=== PATIENT | male | born 1995 | race African-American/Black ===

== ENCOUNTER 2018-05-26 09:37 | Inpatient (IN) ==
[2018-05-26] MEDS ORDERED: Ketorolac Inj 30 MG/ML (IVP) Vial IV.PUSH ONE (10:26)
--- NOTE | 2018-05-26 10:33 | ED ---
HPI General Chief complaint: Dental/Oral Stated complaint: Throat pain/Swelling Time Seen by Provider: 05/26/18 10:05 Source: patient Mode of arrival: ambulatory Limitations: no limitations History of Present Illness HPI narrative: Patient is a 22-year-old -Pak[place] male who presents emergency room with complaints of sore throat, difficulty talking, and difficulty swallowing. Patient was seen here on 05/24/18 for the same symptoms. He was diagnosed with uveitis. He was given 8 mg of Decadron IM while in the ED. He was discharged home on Pen-Vee K, prednisone 40 mg daily, and Motrin. He presents today with no real resolution and worsening of symptoms. Planes of subjective fever. While talking with patient he has had to get up and expectorate a couple of times. No complete shortness of breath or dyspnea. Related Data Previous Rx's Medication Instructions Recorded ibuprofen 800 mg PO TID PRN #21 tab 05/24/18 penicillin V potassium 500 mg PO Q6H 10 Days #40 tab 05/24/18 prednisone 40 mg PO DAILY 5 Days #10 tab 05/24/18 Allergies Allergy/AdvReac Type Severity Reaction Status Date / Time No Known Allergies Allergy Verified 05/26/18 10:10 Review of Systems ROS: all other systems reviewed are negative PMFSH Surgical History Surgical History No history of previous surgery (Acute) Social History Social History Substance History: No History of Abuse Second Hand Smoke Exposure: Yes Smoking Status: Current every day smoker Tobacco Type: Cigarettes How Often Do You Have a Drink Containing Alcohol: 2 to 4 times a month [facility] within the Last 8 Weeks: No Recent Out of Country Travel within the Last 8 Weeks: No Exam Narrative Exam Narrative: GENERAL: Well-nourished, well-developed patient. SKIN: Focused skin assessment warm/dry. HEAD: Normocephalic. EYES: No scleral icterus. No injection or drainage. NECK: Supple, trachea midline. No JVD or lymphadenopathy. CARDIOVASCULAR: Regular rate and rhythm without murmurs, gallops, or rubs. RESPIRATORY: Breath sounds equal bilaterally. No accessory muscle use. ENT: Mucosa pink and moist. Significant pharyngeal erythema, especially of left tonsil with exudates. Mild uvular edema. Left tonsil more swollen but no signficant uvula deviation. Airway patent. Course Initial Documented Vital Signs Temperature 98.7 F 05/26/18 09:46 Pulse Rate 71 05/26/18 09:46 Respiratory Rate 15 05/26/18 09:46 Blood Pressure 136/59 L 05/26/18 09:46 Pulse Oximetry 99 05/26/18 09:46 Last Documented Vital Signs Temperature 98.7 F 05/26/18 09:46 Pulse Rate 74 05/26/18 14:41 Respiratory Rate 18 05/26/18 14:41 Blood Pressure 129/78 05/26/18 14:41 Pulse Oximetry 99 05/26/18 09:46 Medical Decision Making MDM Narrative Medical decision making narrative: 22-year-old male presents with 3-day plus history of sore throat, painful swallowing. He was seen here on 05/24/18 and treated with IM Decadron, penicillin, Motrin. He was just discharged on antibiotics as well as prednisone. Returns with worsening of symptoms. Upon exam he does have significant left tonsillar erythema with exudates. There is no significant uvula deviation. He has left-sided cervical tender lymphadenopathy. Examined with Dr. Gan. CT of the soft tissues of the neck, CBC with differential, CMP, CRP, mono screen and strep screen ordered. Patient given [address] of the soft tissues of the neck shows a left parapharyngeal abscess measuring 2.3 x 2 cm with mild mass-effect on the airway which is deviated to the right of midline. Call placed to Dr. Cleaning, ENT, who advised admission. Orders received for clindamycin as well as Decadron. 12: 44, page placed to hospitalist Medical Screen Exam Complete: Yes Emergency Medical Condition: Yes Differential Diagnosis Differential Diagnosis: Streptococcal pharyngitis/peritonsillar abscess/ mononucleosis/uvulitis Lab Data Result diagrams: 05/26/18 10:35 05/26/18 10:35 Lab Results 05/26/18 05/26/18 05/26/18 Range/Units 10:35 10:35 10:35 WBC 11.4 H (4.0-11.0) th/mm3 RBC 4.87 (4.50-5.90) mil/mm3 Hgb 15.1 (13.0-17.0) gm/dL Hct 42.5 (39.0-51.0) % MCV 87.2 (80.0-100.0) fL MCH 30.9 (27.0-34.0) pg MCHC 35.5 (32.0-36.0) % RDW 13.4 (11.6-17.2) % Plt Count 182 (150-450) th/mm3 MPV 9.1 (7.0-11.0) fL Neut % (Auto) 76.8 H (16.0-70.0) % Lymph % (Auto) 14.5 (9.0-44.0) % [place] % (Auto) 8.2 H (0.0-8.0) % Eos % (Auto) 0.3 (0.0-4.0) % Baso % (Auto) 0.2 (0.0-2.0) % Neut # (Auto) 8.7 H (1.8-7.7) th/mm3 Lymph # (Auto) 1.6 (1.0-4.8) th/mm3 [place] # (Auto) 0.9 (0.0-0.9) th/mm3 Eos # (Auto) 0.0 (0.0-0.4) th/mm3 Baso # (Auto) 0.0 (0.0-0.2) th/mm3 WBC Differential . Differential Comment Auto diff final Sodium 142 (136-145) meq/L Potassium 4.0 (3.5-5.1) meq/L Chloride 109 H (98-107) meq/L Carbon Dioxide 27.7 (21.0-32.0) meq/L Anion Gap 5 (5-15) meq/L BUN 14 (7-18) mg/dL Creatinine 1.04 (0.60-1.30) mg/dL Estimated GFR Greater than 89 (>89) mL/min Random Glucose 82 (74-106) mg/dL Calcium 8.8 (8.5-10.1) mg/dL C-Reactive Protein 4.91 H (0.00-0.30) mg/dL Monoscreen Neg (Neg) Imaging Data Radiologist's impression: Soft Tissue Neck CT 05/26/18 10:24 CONCLUSION: 1. Left parapharyngeal abscess. Discharge Plan Discharge Disposition Patient Disposition: ED Admit(ED Internal Use Only) Discharge Condition Condition: Stable Discharge Order Discharge Orders: ED Use Only Admit Order (Routine); Ordered 05/26/18 Ordered By: Nilda Quinonez Discharge Details Diagnosis: Abscess, parapharyngeal Physicians Team ED Provider: Pablo Burroughs ED Midlevel Provider: Nilda Quinonez Primary Care Provider: UNKNOWN, Attending Provider: Gisselle Zavala Other Providers: Trae Cleaning Status ED Status: Left Department Discharge Information Discharge Date/Time: 05/26/18 17:24
[2018-05-26 10:48] LABS: Baso % (Auto) 0.2 % (0.0-2.0); Eos % (Auto) 0.3 % (0.0-4.0); Hematocrit 42.5 % (39.0-51.0); Hemoglobin 15.1 gm/dL (13.0-17.0); Lymph # (Auto) 1.6 th/mm3 (1.0-4.8); Lymph % (Auto) 14.5 % (9.0-44.0); Mean Corpuscular HGB Conc 35.5 % (32.0-36.0); Mean Corpuscular Hemoglobin 30.9 pg (27.0-34.0); Mean Corpuscular Volume 87.2 fL (80.0-100.0); Mean Platelet Volume 9.1 fL (7.0-11.0); Mono # (Auto) 0.9 th/mm3 (0.0-0.9); Mono % (Auto) 8.2 % (0.0-8.0); Neut # (Auto) 8.7 th/mm3 (1.8-7.7); Neut % (Auto) 76.8 % (16.0-70.0); Platelet Count 182 th/mm3 (150-450); Red Blood Count 4.87 mil/mm3 (4.50-5.90); Red Cell Distribution Width 13.4 % (11.6-17.2); White Blood Count 11.4 th/mm3 (4.0-11.0)
[2018-05-26 11:05] LABS: Anion Gap 5 meq/L (5-15); Blood Urea Nitrogen 14 mg/dL (7-18); C-Reactive Protein 4.91 mg/dL (0.00-0.30); Calcium 8.8 mg/dL (8.5-10.1); Carbon Dioxide 27.7 meq/L (21.0-32.0); Chloride 109 meq/L (98-107); Glomerular Filtration Rate Greater Than 89 mL/min (>89); Glucose,Random 82 mg/dL (74-106); Sodium 142 meq/L (136-145)
[2018-05-26 11:09] LABS: Mono Screen Neg (Neg)
--- NOTE | 2018-05-26 11:53 | CT ---
EXAM DATE: 05/26/2018 11:46 AM EST AGE/SEX: 22 years / Male INDICATIONS: Left sided neck pain, difficulty swallowing since Wednesday. CLINICAL DATA: This is the patient's initial encounter. Patient reports that signs and symptoms have been present for 3 days and indicates a pain score of 10/10. MEDICAL/SURGICAL HISTORY: None. None. RADIATION DOSE: 1.04 CTDI (mGy) COMPARISON: No prior exams available for comparison. TECHNIQUE: Helical acquisition was performed using a multirow detector CT scanner during the adminis tration of 65 ml Omnipaque 350 (iohexol) nonionic water-soluble contrast as a single exam dose. Usi ng automated exposure control and adjustment of the mA and/or kV according to patient size, radiation dose was kept as low as reasonably achievable to obtain optimal diagnostic quality images. DICOM fo rmat image data is available electronically for review and comparison. FINDINGS: Nasopharynx: The nasopharyngeal airway has a normal configuration. No mucosal thickening or mass is seen. Oropharynx: The intrinsic muscles of the tongue are symmetric. The tonsillar pillars are intact. T he prevertebral soft tissues are not thickened. Larynx: The supraglottic, glottic, and infraglottic structures are intact. Parapharyngeal: The left parapharyngeal soft tissues are abnormally prominent and there is an ill-de fined low-attenuation region measuring up to 2.3 x 2 cm with subtle apparent peripheral enhancement. There is mild mass effect on the airway which is deviated to the right of midline. The left fossa of Rosenmuller is occluded. There are no abnormal gas bubbles. Salivary Glands: The parotid and submandibular glands are intact. Lymph Nodes: No enlarged or necrotic-appearing nodes. Thyroid: Homogeneous enhancement without evidence of nodule. Bones: Unremarkable. CONCLUSION: 1. Left parapharyngeal abscess. Electronically signed by: Toy Gutierrez MD Board Certified Radiologist 05/26/2018 11:51 AM EST
[2018-05-26] MEDS ORDERED: Ampicillin/Sulbactam Inj 3 GM in Sodium Chloride 0.9% Inj 100 ML IV.SIG ONE (12:00)
[2018-05-26] MEDS ORDERED: Dexamethasone Inj 20 MG/5 ML Vial IV.PUSH ONE ×2 (12:44→20:00)
[2018-05-26] MEDS: Clindamycin 900 mg/NS Premix 900 MG/50 ML PIGGYBACK IV.SIG SCH ×2 (13:17→21:55)
[2018-05-26] MEDS ORDERED: Bisacodyl 10 MG Supp RECTAL PRN (13:19)
[2018-05-26] MEDS ORDERED: Acetaminophen 325 MG Tablet PO PRN (13:19)
--- NOTE | 2018-05-26 13:50 | P.HPIM ---
History of Present Illness Primary Care Physician: UNKNOWN History of Present Illness: 22 yo M with no known medical history who presented to ER with throat pain and difficulty swallowing. Patient was in his usual state until 4 days ago when he developed a sore throat , associated with fevers and chills. He had some pain swallowing as well. He came to ER 2 days ago, was prescribed Penicillin, Prednisone and Ibuprofen and discharged home. He reports taking all medication, but throat pain continued to worsen and he had difficulty swallowing solid food. Throughout last night pain worsened,and this morning he decided to come back to ER. On presentation to ER, VSS, labs- mild leucocytosis 11.4 with neutrophilia, CT neck showed left parapharyngeal abscess. ENT Dr. Arshad consulted in ER recommended IV Clindamycin and IV Dexamethasone, he will see patient. Diagnosis (1) Abscess, parapharyngeal: Review of Systems Review of Systems: all other systems reviewed are negative [facility] Surgical History Surgical History No history of previous surgery (Acute) Social History Social History Substance History: No History of Abuse Second Hand Smoke Exposure: Yes Smoking Status: Current every day smoker Tobacco Type: Cigarettes How Often Do You Have a Drink Containing Alcohol: 2 to 4 times a month Recent Travel in [facility] within the Last 8 Weeks: No Recent Out of Country Travel within the Last 8 Weeks: No Immunization History Tetanus Immunization: >5 Years Medications and Allergies Allergies Allergy/AdvReac Type Severity Reaction Status Date / Time No Known Allergies Allergy Verified 05/26/18 10:10 Active Medications: Active Medications Acetaminophen (Tylenol) 650 mg PO Q4H PRN PRN Reason: Temp > 100.4 Al Hydroxide/Mg Hydroxide (Milk Of Magnesia Liq) 30 ml PO Q12H PRN PRN Reason: Mild Constipation Bisacodyl (Dulcolax Supp) 10 mg RECTAL DAILY PRN PRN Reason: SEVERE CONSITIPATION Dexamethasone Sodium Phosphate (Decadron Inj) 10 mg IV.PUSH Q8H ONE Stop: 05/26/18 20:01 Clindamycin/Sodium Chloride (Cleocin 900 Mg/Ns Premix) 900 mg in 50 mls @ 200 mls/hr IV.SIG Q8H MELISSA Last Admin: 05/26/18 13:17 Dose: 200 mls/hr Lactulose (Lactulose Liq) 30 ml PO DAILY PRN PRN Reason: SEVERE CONSITIPATION Ondansetron HCl (Zofran Inj) 4 mg IV.PUSH Q6H PRN PRN Reason: NAUSEA OR VOMITING Senna/Docusate Sodium (Karissa-Colace) 1 tab PO BID [facility], [facility]–1983 Sennosides (Senokot) 17.2 mg PO Q12H PRN PRN Reason: Moderate Constipation Sodium Chloride (Ns Flush) 2 ml IV.FLUSH BID MELISSA Sodium Chloride (Ns Flush) 2 ml IV.FLUSH PRN PRN PRN Reason: FLUSH AFTER USING IV ACCESS Physical Exam Vital signs: Vital Signs 05/26/18 09:46 Temperature 98.7 F Pulse Rate 71 Respiratory Rate 15 Blood Pressure 136/59 L Pulse Oximetry 99 Intake & Output 05/25/18 05/26/18 05/26/18 18:59 06:59 18:59 Intake Total 100 / 100 Balance 100 / 100 Weight 77.111 kg Intake: IV 100 / 100 Unasyn Inj 3 GM In NS Inj 100 100 / 100 ML @ 200 mls/hr IV.SIG ONCE ONE Rx#:[id number] Narrative: GENERAL: young man,well developed not in distress. HEENT:not pale,anicteric, lt tonsillar swelling 2/4,erythema noted. rt tonsil not swollen but whitish areas noted. CARDIOVASCULAR: Regular rate and rhythm without murmurs, gallops, or rubs. RESPIRATORY: Clear to auscultation. Breath sounds equal bilaterally. No wheezes , rales, or rhonchi. GASTROINTESTINAL: Abdomen soft, non-tender, nondistended. Normal active bowel sounds MUSCULOSKELETAL: Extremities without clubbing, cyanosis, or edema. NEURO: Alert & Oriented x4 to person, place, time, situation. Moves all ext x4 Results Labs CBC & Chem 7: 05/26/18 10:35 05/26/18 10:35 Imaging Impressions Soft Tissue Neck CT 05/26/18 10:24 CONCLUSION: 1. Left parapharyngeal abscess. Caprini VTE Risk Assessment Caprini VTE Risk Assessment: No/Low Risk (score <= 1) Caprini Risk Assessment Model: Point Value = 1 Point Value = 2 Point Value = 3 Point Value = 5 Age 41-60 Minor surgery BMI > 25 kg/m2 Swollen legs Varicose veins or History of unexplained or recurrent spontaneous Oral contraceptives or hormone replacement Sepsis (< 1 month) Serious lung disease, including pneumonia (< 1 month) Abnormal pulmonary function Acute myocardial infarction Congestive heart failure (< 1 month) History of inflammatory bowel disease Medical patient at bed rest Age 61-74 Arthroscopic surgery Major open surgery (> 45 min) Laparoscopic surgery (> 45 min) Malignancy Confined to bed (> 72 hours) Immobilizing plaster cast Central venous access Age >= 75 History of VTE Family history of VTE Factor V Leiden Prothrombin [id number] Lupus anticoagulant Anticardiolipin antibodies Elevated serum homocysteine Heparin-induced thrombocytopenia Other congenital or acquired thrombophilia Stroke (< 1 month) Elective arthroplasty Hip, pelvis, or leg fracture Acute spinal cord injury (< 1 month) Prophylaxis Regimen: Total Risk Factor Score Risk Level Prophylaxis Regimen 0-1 Low Early ambulation 2 Moderate Order ONE of the following: *Sequential Compression Device (SCD) *Heparin 5000 units SQ BID 3-4 Higher Order ONE of the following medications: *Heparin 5000 units SQ TID *Enoxaparin/Lovenox 40 mg SQ daily (WT < 150 kg, CrCl > 30 mL/min) *Enoxaparin/Lovenox 30 mg SQ daily (WT < 150 kg, CrCl > 10-29 mL/min) *Enoxaparin/Lovenox 30 mg SQ BID (WT < 150 kg, CrCl > 30 mL/min) AND/OR *Sequential Compression Device (SCD) 5 or more Highest Order ONE of the following medications: *Heparin 5000 units SQ TID (Preferred with Epidurals) *Enoxaparin/Lovenox 40 mg SQ daily (WT < 150 kg, CrCl > 30 mL/min) *Enoxaparin/Lovenox 30 mg SQ daily (WT < 150 kg, CrCl > 10-29 mL/min) *Enoxaparin/Lovenox 30 mg SQ BID (WT < 150 kg, CrCl > 30 mL/min) AND *Sequential Compression Device (SCD) Assessment and Plan (1) Abscess, parapharyngeal: Code(s): J39.0 - Retropharyngeal and parapharyngeal abscess Status: Acute Plan 22 yo M with no pmhx presented with throat pain and difficulty swallowing,found to have parapharyngeal abscess. Strep throat and mono screen negative. Throat culture pending. Keep on IV Clindamycin and Dexamethasone. Full liquid diet for now. ENT consulted in ER. DVT ppx-low risk,ambulate.
[2018-05-26] MEDS: Ketorolac Inj 30 MG/ML (IVP) Vial IV.PUSH PRN ×2 (15:14→22:36)
[2018-05-26] MEDS: Senna/Docusate Sodium 8.6/50 MG Tablet PO SCH (20:56)
[2018-05-27] MEDS: Clindamycin 900 mg/NS Premix 900 MG/50 ML PIGGYBACK IV.SIG SCH ×3 (05:36→21:30)
[2018-05-27 07:16] LABS: Baso % (Auto) 0.1 % (0.0-2.0); Hematocrit 40.3 % (39.0-51.0); Hemoglobin 13.7 gm/dL (13.0-17.0); Lymph # (Auto) 0.6 th/mm3 (1.0-4.8); Lymph % (Auto) 5.9 % (9.0-44.0); Mean Corpuscular HGB Conc 34.1 % (32.0-36.0); Mean Corpuscular Hemoglobin 29.6 pg (27.0-34.0); Mean Corpuscular Volume 86.7 fL (80.0-100.0); Mean Platelet Volume 8.8 fL (7.0-11.0); Mono # (Auto) 0.6 th/mm3 (0.0-0.9); Neut # (Auto) 9.2 th/mm3 (1.8-7.7); Platelet Count 203 th/mm3 (150-450); Red Blood Count 4.65 mil/mm3 (4.50-5.90); Red Cell Distribution Width 13.4 % (11.6-17.2); White Blood Count 10.4 th/mm3 (4.0-11.0)
[2018-05-27 07:43] LABS: Anion Gap 6 meq/L (5-15); Blood Urea Nitrogen 12 mg/dL (7-18); Calcium 8.3 mg/dL (8.5-10.1); Carbon Dioxide 27.3 meq/L (21.0-32.0); Chloride 109 meq/L (98-107); Glomerular Filtration Rate Greater Than 89 mL/min (>89); Glucose,Random 101 mg/dL (74-106); Potassium 4.2 meq/L (3.5-5.1); Sodium 142 meq/L (136-145)
[2018-05-27] MEDS: Senna/Docusate Sodium 8.6/50 MG Tablet PO SCH ×2 (08:30→21:32)
[2018-05-27] MEDS: Ketorolac Inj 30 MG/ML (IVP) Vial IV.PUSH PRN (10:23)
--- NOTE | 2018-05-27 10:53 | P.PNIM ---
Subjective Interval history: patient reports throat pain. still having some pain on swallowing. Physical Exam Vital signs: Vital Signs 05/26/18 14:41 05/26/18 18:28 05/26/18 20:00 Temperature 97.2 F L 98.8 F Pulse Rate 74 68 70 Respiratory Rate 18 16 18 Blood Pressure 129/78 129/59 L 125/64 Pulse Oximetry 99 98 05/27/18 01:50 05/27/18 05:50 Temperature 98.9 F 97.9 F Pulse Rate 63 54 L Respiratory Rate 18 18 Blood Pressure 123/58 L 93/51 L Pulse Oximetry 97 98 Intake & Output 05/26/18 05/27/18 05/27/18 18:59 06:59 18:59 Intake Total 150 / 150 1060 / 1060 Balance 150 / 150 1060 / 1060 Weight 77.111 kg Intake: IV 150 / 150 100 / 100 Unasyn Inj 3 GM In NS Inj 100 100 / 100 ML @ 200 mls/hr IV.SIG ONCE ONE Rx#:[id number] Cleocin 900 mg/NS Premix 900 mg 50 / 50 100 / 100 In 50 ml @ 200 mls/hr IV.SIG Q8H MELISSA Rx#:[id number] Oral 960 / 960 Other: # Voids 1 2 Date of Last Bowel Movement 05/26/18 Weight On Admission 77.111 kg Narrative: GENERAL: young man,well developed not in distress. HEENT:not pale,anicteric, lt tonsillar swelling 2/4,erythema noted. rt tonsil not swollen but whitish areas noted. CARDIOVASCULAR: Regular rate and rhythm without murmurs, gallops, or rubs. RESPIRATORY: Clear to auscultation. Breath sounds equal bilaterally. No wheezes , rales, or rhonchi. GASTROINTESTINAL: Abdomen soft, non-tender, nondistended. Normal active bowel sounds MUSCULOSKELETAL: Extremities without clubbing, cyanosis, or edema. NEURO: Alert & Oriented x4 to person, place, time, situation. Moves all ext x4 Results Labs CBC & Chem 7: 05/27/18 06:57 05/27/18 06:57 Labs: Microbiology 05/26/18 10:25 Throat Group A Streptococcus Screen (RACQUEL) - Final Imaging Imaging: Impressions Soft Tissue Neck CT 05/26/18 10:24 CONCLUSION: 1. Left parapharyngeal abscess. Assessment and Plan (1) Abscess, parapharyngeal: Code(s): J39.0 - Retropharyngeal and parapharyngeal abscess Status: Acute Plan 22 yo M with no pmhx presented with throat pain and difficulty swallowing,found to have parapharyngeal abscess. Strep throat and mono screen negative. Throat culture pending. Keep on IV Clindamycin and Dexamethasone. Full liquid diet for now. ENT consulted in ER. DVT ppx-low risk,ambulate. Progress Note: Quality VTE Deep Vein Thrombosis/Pulmonary Embolism Present on Admission: No
[2018-05-27] MEDS: Chlorhexidine Gluconate 0.12% Liq 15 ML UDC SWISH-SPIT SCH (16:17)
--- NOTE | 2018-05-27 18:18 | MB ---
cc: Trae Cleaning MD DATE: 05/27/2018 CHIEF COMPLAINT: Left parapharyngeal abscess. HISTORY OF PRESENT ILLNESS: The patient is a pleasant 22-year-old male with a recent left parapharyngeal abscess. CT scan showed left-sided parapharyngeal abscess roughly 2.2 x 2 cm with airway being stable with mild mass effect. He has done well over the last 24 hours with antibiotics and steroids. He has been on clindamycin as well as Decadron. He has had spontaneous rupture of the left parapharyngeal abscess. He actually feels dramatically better after the rupture of the parapharyngeal abscess. Flexible fiberoptic laryngoscopy reveals minimal recurrent inflammation in the left oropharynx and no active fluctuance. The patient feels dramatically better. He would like to go home as soon as possible. I discussed the possibility of a tonsillectomy in the future he has any recurrence of this infection. I also discussed measures to prevent infections and to improve his immune system such as making sure that he has adequate amounts of zinc and vitamin C. I also discussed using a sinus rinse daily to keep his sinuses irrigated to minimize bacterial colonization. I recommend the patient continue on antibiotics and steroids until tomorrow. We will be discharged tomorrow if no changes with clindamycin for 2 weeks as well as Medrol Dosepak and Peridex mouthwash versus other mouthwash. The patient understands he can follow up with ENT in 2-4 weeks as needed. Trae Cleaning MD [facility]/ct , 05:32 PM , 05:40 PM
[2018-05-27 19:50] VITALS: RESP 16
[2018-05-28] MEDS: Chlorhexidine Gluconate 0.12% Liq 15 ML UDC SWISH-SPIT SCH ×3 (01:05→10:00)
[2018-05-28] MEDS: Clindamycin 900 mg/NS Premix 900 MG/50 ML PIGGYBACK IV.SIG SCH (05:16)
[2018-05-28] MEDS: Ketorolac Inj 30 MG/ML (IVP) Vial IV.PUSH PRN (05:33)
[2018-05-28 08:01] VITALS: BP 124/77; PULSE 57; TEMP 98.1; O2SAT 95
--- NOTE | 2018-05-28 08:58 | P.PNIM ---
Subjective Interval history: Patient doing well, no throat pain at present. para pharyngeal abscess raptured spontaneously. Physical Exam Vital signs: Vital Signs 05/27/18 12:00 05/27/18 12:07 05/27/18 16:00 Temperature Pulse Rate 59 L 60 Respiratory Rate 17 17 18 Blood Pressure 115/55 L 128/64 Pulse Oximetry 98 98 05/27/18 19:47 05/27/18 23:42 05/28/18 03:22 Temperature 98.4 F 98.3 F 97.9 F Pulse Rate 57 L 50 L 56 L Respiratory Rate 16 16 16 Blood Pressure 127/72 128/59 L 96/54 L Pulse Oximetry 97 95 96 05/28/18 08:00 Temperature 98.1 F Pulse Rate 57 L Respiratory Rate 16 Blood Pressure 124/77 Pulse Oximetry 95 Intake & Output 05/27/18 05/28/18 05/28/18 18:59 06:59 18:59 Intake Total 50 / 50 100 / 100 Balance 50 / 50 100 / 100 Intake: IV 50 / 50 100 / 100 Cleocin 900 mg/NS Premix 900 mg 50 / 50 100 / 100 In 50 ml @ 200 mls/hr IV.SIG Q8H MELISSA Rx#:[id number] Other: # Voids 3 Date of Last Bowel Movement 05/26/18 Results Labs CBC & Chem 7: 05/27/18 06:57 05/27/18 06:57 Labs: Microbiology 05/26/18 10:25 Throat Group A Streptococcus Screen/Cult - Preliminary No Beta Streptococci isolated at 24 hours Assessment and Plan (1) Abscess, parapharyngeal: Code(s): J39.0 - Retropharyngeal and parapharyngeal abscess Status: Acute Plan 22 yo M with no pmhx presented with throat pain and difficulty swallowing,found to have parapharyngeal abscess. Strep throat and mono screen negative. abscess raptured spontaneously yesterday evening. He feels much better now. pain has improved. Discharge home on PO Clindamycin, Medrol pack and Chlorhexidine swish/spit. He will follow up with ENT Dr. Cleaning in 2-4weeks. Progress Note: Quality VTE Deep Vein Thrombosis/Pulmonary Embolism Present on Admission: No
--- NOTE | 2018-05-28 09:01 | P.DS ---
DS: Providers Date of admission: 05/27/18 15:15 Primary care physician: UNKNOWN Consults: 05/26/18 12:45 Consult to ENT Routine Consulting Provider: Trae Cleaning Preferred Accounts Receivable Bookkeeper:: Trae Cleaning Reason for Consultation: parapharyngeal abscess/physician already notified Notified:: Office Spoke with:: Svetlana Date Notified:: 05/26/18 Time Notified:: 13:26 Ordering Provider: VALDEMAR Brief History from admission: 22 yo M with no known medical history who presented to ER with throat pain and difficulty swallowing. Patient was in his usual state until 4 days ago when he developed a sore throat , associated with fevers and chills. He had some pain swallowing as well. He came to ER 2 days ago, was prescribed Penicillin, Prednisone and Ibuprofen and discharged home. He reports taking all medication, but throat pain continued to worsen and he had difficulty swallowing solid food. Throughout last night pain worsened,and this morning he decided to come back to ER. On presentation to ER, VSS, labs- mild leucocytosis 11.4 with neutrophilia, CT neck showed left parapharyngeal abscess. ENT Dr. Arshad consulted in ER recommended IV Clindamycin and IV Dexamethasone, he will see patient. DS: Diagnosis Discharge Diagnosis (1) Abscess, parapharyngeal: Status: Acute DS: Summary 22 yo M with no pmhx presented with throat pain and difficulty swallowing,found to have parapharyngeal abscess. Strep throat and mono screen negative. He was treated with IV Clindamycin and IV Dexamethasone and chlorhexidine swish/ spit while.Abscess raptured spontaneously on the evening of 05/27. ENT Dr. Cleaning evaluated patient. He feels much better now. pain has improved. Discharge home on PO Clindamycin, Medrol pack and Chlorhexidine swish/spit. He will follow up with ENT Dr. Cleaning in 2-4weeks. Time Spent with Patient Total time spent providing and/or coordinating discharge services:>30 MINUTES Quality: VTE Deep Vein Thrombosis/Pulmonary Embolism Present on Admission: No Results Labs on day of discharge: Preliminary micro results at discharge 05/26/18 10:25 Group A Streptococcus Screen/Cult - Preliminary Throat No Beta Streptococci isolated at 24 hours Impressions ITS Impressions Soft Tissue Neck CT 05/26/18 10:24 CONCLUSION: 1. Left parapharyngeal abscess. Discharge Plan Discharge Disposition Patient Disposition: Discharge Home Discharge Condition Condition: Stable Discharge Order Discharge Orders: Discharge Order (Routine); Ordered 05/28/18 Ordered By: Gisselle Zavala Discharge Details Anticipated Discharge Date: 05/28/18 Physicians Team ED Provider: Pablo Burroughs ED Midlevel Provider: Nilda Quinonez Primary Care Provider: UNKNOWN, Attending Provider: Gisselle Zavala Other Providers: Trae Cleaning Rxs /Orders / Referrals /Forms Prescriptions: New chlorhexidine gluconate 0.12 % Mouthwash 15 ml SWISH-SPIT Q6H 5 Days Qty: 473 RF: 0 clindamycin HCl 300 mg capsule 600 mg PO Q8H 7 Days Qty: 42 RF: 0 methylprednisolone [Medrol (Larry)] 4 mg tablets,dose pack See Label Instructions PO PER PKG DIR Qty: 21 RF: 0 Continue ibuprofen 800 mg tablet 800 mg PO TID PRN (Reason: pain) Qty: 21 RF: 0 Discontinued prednisone 20 mg tablet 40 mg PO DAILY 5 Days Qty: 10 RF: 0 penicillin V potassium 500 mg tablet 500 mg PO Q6H 10 Days Qty: 40 RF: 0 Referrals: Trae Cleaning MD [Physician] - See Instructions (follow up in 2-4 weeks) UNKNOWN, [Primary Care Provider] - See Instructions (Patient to follow up with Primary in 1 week.) Status ED Status: Left Department
[2018-05-28] MEDS: Senna/Docusate Sodium 8.6/50 MG Tablet PO SCH (10:03)
== END 2018-05-28 11:36 | disposition home or self-care (01) | DRG 153 ==
LOC: NEDA 09:37 → NEPA 09:37 → NEDA 15:31 → NEPHCDU 17:13
PROVIDERS: ADMIT Hospitalist; ATTEND Hospitalist
CPT/HCPCS: 70491; 80048; 85025; 86140; 86308; 87081; 87880; 90765; 90775; 96365; 96375; 96376; 99285; G0378; J0295; J1100; J1885; J2405; Q9967